=== PATIENT | male | born 1950 | race Caucasian/White ===

== ENCOUNTER 2017-08-19 05:28 | Day surgery (SDC) | payer MEDICARE, SELFPAY ==
[2017-08-09 11:51] VITALS: BP 139/88; PULSE 64; RESP 16; TEMP 36.7; O2SAT 96; BMI 26.8
[2017-08-19 11:19] VITALS: BP 160/85; PULSE 80; RESP 14; TEMP 36.6; O2SAT 99; BMI 26.8
[2017-08-19] MEDS: Cyclopentolate 1% 2 ML Bottle 1 DRP OPHTHALMIC ×3 (11:24→11:34)
[2017-08-19] MEDS: Tetracaine 0.5% Ophthalmic Bottle 1 DRP (13:00)
--- NOTE | 2017-08-19 13:25 | PCM.OP.BLANK ---
Operative Report Date of Procedure: 08/19/17 Preoperative Diagnosis Cataract OS Postoperative Diagnosis: Same Complications: none EBL: none Anesthesia: mac/topical Indications for procedure: This is a 67 yo patient with history of worsening vision in the left eye due to cataract. After discussion of r/b/a of surgery patient agreed to proceed with cataract extraction and intraocular lens implant. Description of procedure: The patient entered the operating room where a time out was performed prior to the start of the procedure. Anesthesia team induced light sedation. The eye was prepped and draped in the usual sterile fashion for eye surgery. Subsequently a fariha knife was used to create a paracentesis incision at the inferotemporal limbus. Preservative free lidocaine followed by viscoat was instilled into the anterior chamber. A cystotome was used to begin the capsulorhexis which was completed in a continuous curvilienar fashion using the capsulorhexis forceps. BSS on a ahmadi cannula was used to hydrodissect beneath the lens capsule until the lens was noted to be freely mobile in the capsular bag. Phacoemulsification was used to remove the lens in a divide and conquer technique. Irrigation and aspiration was used to remove the remaining cortical material. Provisc was used to inflate the capsular bag. A tecnis PCBOO 15.0 diopter lens was placed into the capsular bag and adjusted using the eugene hook. The remaining viscoelastic material was removed. Wound was noted to be watertight with weckcell sponge, and the patient was taken to recovery area with instructions to follow up in the clinic the following day. Ely Franco MD
[2017-08-19 13:28] VITALS: BP 135/85; BP 160/85; PULSE 80; RESP 16; TEMP 36.7; O2SAT 96
[2017-08-19 13:35] VITALS: BP 134/90; BP 160/85; PULSE 75; RESP 16; O2SAT 95
[2017-08-19 13:40] VITALS: BP 132/79; BP 160/85; PULSE 70; RESP 16; O2SAT 96
[2017-08-19 13:45] VITALS: BP 131/77; BP 160/85; PULSE 70; RESP 16; TEMP 36.6; O2SAT 96
[2017-08-19 14:13] VITALS: BP 160/85
== END 2017-08-19 14:14 | disposition home or self-care (01) ==
LOC: SDC 08-20 17:58
PROVIDERS: Family Provider Family Medicine; PCP Family Medicine; Visit Provider Ophthalmology
DX: H25.812 Combined forms of age-related cataract, left eye (principal); I25.10 Atherosclerotic heart disease of native coronary artery without angina pectoris; I10 Essential (primary) hypertension; I25.2 Old myocardial infarction; E78.00 Pure hypercholesterolemia, unspecified; Z86.718 Personal history of other venous thrombosis and embolism; Z85.828 Personal history of other malignant neoplasm of skin; Z87.442 Personal history of urinary calculi; Z79.82 Long term (current) use of aspirin; Z79.899 Other long term (current) drug therapy; Z87.891 Personal history of nicotine dependence
CPT/HCPCS: 66984; J7120